=== PATIENT | female | born 1975 ===

== ENCOUNTER → 2017-01-24 | Outpatient (REF) ==
[2017-01-25 21:10] LABS: RUBELLA AB IGG 5.73 OD Ratio (>1.09); RUBELLA AB IGG Positive
== END ==
LOC: CLAB.CORPH 13:35
PROVIDERS: ATTEND Family Medicine
DX: Z02.1 Encounter for pre-employment examination (principal)
CPT/HCPCS: 86706; 86735; 86762; 86765; 86787